=== PATIENT | male | born 1930 | race Caucasian/White ===

== ENCOUNTER 2017-10-18 13:58 | Outpatient (CLI) | payer MEDICARE ==
--- NOTE | 2017-10-18 14:45 | XRAY Report ---
Reason: LEFT LEG PAIN Procedure Date: 10/18/2017 Accession Number: [id number] / [id number] Procedure: XR - Tib/Fib LT CPT Code: FULL RESULT: EXAM: LEFT TIBIA/FIBULA RADIOGRAPHY EXAM DATE: 10/18/2017 02:28 PM. CLINICAL HISTORY: LEFT LEG PAIN. COMPARISON: 11/26/2012. TECHNIQUE: 2 views. FINDINGS: Bones: No acute fracture. There is mild cortical thickening along the fibular shaft. Dorsal and plantar calcaneal spurs. Joints: The visualized knee and ankle joints are normally aligned. Probable knee joint effusion. Soft Tissues: Mild diffuse soft tissue swelling. IMPRESSION: No acute osseus abnormality. [facility]
== END 2017-10-18 13:59 | disposition home or self-care (01) ==
LOC: DI 13:58
PROVIDERS: ATTEND Nurse Practitioner Family
DX: M79.605 Pain in left leg (principal)

== ENCOUNTER 2017-10-25 13:28 | Outpatient (CLI) | payer MEDICARE ==
--- NOTE | 2017-10-25 14:03 | XRAY Report ---
Reason: COUGH Procedure Date: 10/25/2017 Accession Number: [id number] / [id number] Procedure: XR - Chest 2 View X-Ray CPT Code: 36153 FULL RESULT: EXAM: CHEST RADIOGRAPHY EXAM DATE: 10/25/2017 01:52 PM. CLINICAL HISTORY: COUGH. COMPARISON: 2 view chest 01/19/2014. TECHNIQUE: 2 views. FINDINGS: Lungs/Pleura: Linear atelectasis or scar of the lower lung is a stable finding. No other focal opacities evident. No pleural effusion. No pneumothorax. Normal volumes. Mediastinum: Heart and mediastinal contours are unremarkable. Other: There is a lower thoracic compression fracture that appears new or worse compared to the prior exam, but is time indeterminate. IMPRESSION: Lower thoracic compression fracture. Correlate clinically. No acute pulmonary findings. [facility]
== END 2017-10-25 13:29 | disposition home or self-care (01) ==
LOC: DI 13:28
PROVIDERS: ATTEND Internal Medicine
DX: M48.54XA Collapsed vertebra, not elsewhere classified, thoracic region, initial encounter for fracture (principal); R05 Cough
CPT/HCPCS: 71046